=== PATIENT | female | born 1995 ===

== ENCOUNTER → 2023-08-04 10:28 | Outpatient (BNV) | payer OTHER, SELFPAY ==
--- NOTE | 2023-08-04 10:28 | MHC.OFFVIS ---
Intake Visit Reasons: Amb Documentation HPI Comments Details: student () wants emergency contraception. ups last night - condom fell off - previously used nuva ring but after she broke up w partner, she stopped - now has new partner and they use condoms (normally successfully) she does have nuva ring at home, but is content w. condoms at the moment - just needs plan b for back up\. pmh/fmh non contributory Review of Systems Const Details: Counseling visit: All systems reviewed & are unremarkable except as noted in HPI and below Reports as per HPI Resp Reports as per HPI GI Reports as per HPI Musc Reports as per HPI Neuro Reports as per HPI Psych Reports as per HPI Physical Exam Const General: cooperative, healthy appearing and no acute distress Nutritional Appearance: well nourished Orientation/consciousness: oriented to person Limitations: no limitations HEENT Other: wnl Eyes Other: wnl Chest Other: easy breathing Resp Effort & Inspection: able to speak in complete sentences Skin Other: normal in appearance Neuro General: oriented to person Psych Other: see HPI Mental Status: mental status grossly normal Speech and movement: Clear speech present Attitude: cooperative Thought process: Normal thought process present Assessment & Plan Assessment & Plan (1) Unprotected sex: Code(s): Z72.51 - High risk heterosexual behavior Category: Social Hx (2) control counseling: Code(s): Z30.09 - Encounter for other general counseling and advice on contraception Category: Medical Plan counseling/ and rx for plan b Medications: New levonorgestrel (Plan B One-Step) 1.5 mg PO ONCE 1 tab 6RF Coding Level of Care Code New Pt Level 3 (56325) Diagnoses Unprotected sex Z72.51 control counseling Z30.09 Time Spent (min) 30 Comment counseling and coord w onsite support- not sure if new pt as she is in the computer
== END ==
PROVIDERS: Visit Provider Nurse Practitioner Family
DX: Z72.51 High risk heterosexual behavior (principal); Z30.09 Encounter for other general counseling and advice on contraception
CPT/HCPCS: 99203